=== PATIENT | male | born 1950 | race Caucasian/White ===

== ENCOUNTER 2016-10-27 12:58 | Outpatient (CLI) | payer OTHER ==
--- NOTE | 2016-10-27 13:55 | DIAGNOSTIC IMAGING REPORT ---
PROCEDURE: CT THORAX WITHOUT CONTRAST INDICATION: NEOPLASM OF RT LOWER LUNG, follow-up TECHNIQUE: Noncontrast axial images were obtained of the chest with coronal and sagittal reformations. COMPARISON: Chest CT 07/07/2016 FINDINGS: Stable to slight decrease in the 4.0 x 1.6 cm right lower lobe peripheral ovoid mass (previously 4.4 x 1.7 cm). There has also been improvement of the small right pleural effusion. There is no adenopathy. Sternotomy with a interval removal of the wires. CABG. Extensive coronary atherosclerosis. Heart size is normal. Hepatic steatosis with liver contour irregularity suggestive of cirrhosis. Thoracic spine ankylosis. IMPRESSION: 1. Stable to slight decrease in the size of the peripheral right lower lobe opacity and decreasing small right pleural effusion. Findings suggestive of scarring, possibly from a pulmonary infarct or post inflammatory. Recommend 6- month follow-up CT chest 2. CABG with interval removal of the sternotomy wires 3. Hepatic steatosis and hepatic morphology suggestive of cirrhosis
== END 2016-10-27 23:00 ==
LOC: CT SRH 12:58
DX: D38.1 Neoplasm of uncertain behavior of trachea, bronchus and lung (principal); J90 Pleural effusion, not elsewhere classified; K76.0 Fatty (change of) liver, not elsewhere classified; I25.10 Atherosclerotic heart disease of native coronary artery without angina pectoris; Z95.1 Presence of aortocoronary bypass graft

== ENCOUNTER 2017-01-07 10:15 | Outpatient (CLI) | payer OTHER | END 2017-01-07 23:00 | disposition home or self-care (01) | LOC: RT SRH 10:15 | DX: R00.2 Palpitations (principal) ==